=== PATIENT | male | born 1955 | race Caucasian/White ===

== ENCOUNTER 2021-10-08 05:51 | Emergency (ER) | payer OTHER, MEDICARE ==
[~2021-10-08] VITALS: Ht 177.8 cm; Wt 86.0 kg
[~2021-10-08 05:51] MED LIST: ASPI-1 PO; CITA-311 PO; GABA300C PO; METH-603 PO; METH5TAB PO; TIOT18CA3 INH
[2021-10-08 05:54] VITALS: BP 166/70
--- NOTE | 2021-10-08 12:16 | NUR ---
PT ELOPED FROM THE ER AT 0851. PT'S CALLED AT APPROX 0930 TO SEE IF THERE WERE ANY RESULTS FROM HIS CT SCAN. WAS INFORMED THAT THE CT HAD NOT BEEN READ BY THE ANESTHEOLOGIST AND TO CALL BACK IN APPROX 1 HR. PT'S NEVER CALLED BACK AND CT RESULTS WERE REVIEWED BY DR YOUNG. NOTED THAT PT HAD DISPLACED FRACTURES OF LT 3RD THROUGH 9TH RIBS AND REQUESTED THAT PT BE CALLED TO RETURN TO THE ER. PT'S WAS CALLED AND INFORMED OF THE CT RESULTS AND REQUESTED THAT SHE BRING HER BACK IN. STATES THAT THE PT WAS SLEEPING AND WAS HAVING NO NOTED DIFFICULTY BREATHING. STATES THAT THEY WOULD BE IN [place]. DR PORTILLO WAS NOTIFIED
[2021-10-08] MEDS ORDERED: HYDR-3972 PO (14:51)
== END 2021-10-08 08:53 | disposition left against medical advice (07) ==
LOC: ER 05:51
DX: R07.81 Pleurodynia (principal); Z53.21 Procedure and treatment not carried out due to patient leaving prior to being seen by health care provider
CPT/HCPCS: 71250

== ENCOUNTER 2021-10-08 12:44 | Emergency (ER) | payer OTHER, MEDICARE ==
[~2021-10-08] VITALS: Ht 177.8 cm; Wt 86.4 kg
[2021-10-08 13:53] VITALS: BP 148/87
[2021-10-08] MEDS ORDERED: morphine 4 MG/ML inj SYRINge IM ONE (14:45)
[2021-10-08] MEDS ORDERED: HYDROcodone/acetaminophen 10/325mg tab PO ONE (14:45)
[2021-10-08] MEDS ORDERED: HYDR-3972 PO (14:51)
== END 2021-10-08 15:20 | disposition home or self-care (01) ==
LOC: ER 12:44
DX: S22.42XA Multiple fractures of ribs, left side, initial encounter for closed fracture (principal); J44.9 Chronic obstructive pulmonary disease, unspecified; Z87.891 Personal history of nicotine dependence; Z79.82 Long term (current) use of aspirin; Z79.899 Other long term (current) drug therapy; W19.XXXA Unspecified fall, initial encounter; Y93.01 Activity, walking, marching and hiking; Y92.89 Other specified places as the place of occurrence of the external cause; Y99.8 Other external cause status
CPT/HCPCS: 96372; 99284; J2270

== ENCOUNTER 2024-08-10 12:09 | Emergency (ER) | payer OTHER, MEDICARE ==
[~2024-08-10] VITALS: Ht 177.8 cm; Wt 83.2 kg
[~2024-08-10 12:09] MED LIST changes: +HYDR-3972 PO
[2024-08-10 12:18] VITALS: BP 168/90; PULSE 60; TEMP 97.6; O2SAT 96
[2024-08-10 14:00] VITALS: RESP 16
[2024-08-10] MEDS: HYDROcodone/acetaminophen 10/325mg tab PO ONE (14:00)
== END 2024-08-10 15:19 | disposition home or self-care (01) ==
LOC: ER 12:10
DX: K40.90 Unilateral inguinal hernia, without obstruction or gangrene, not specified as recurrent (principal); J44.9 Chronic obstructive pulmonary disease, unspecified; Z72.89 Other problems related to lifestyle; Z79.899 Other long term (current) drug therapy; Z79.1 Long term (current) use of non-steroidal anti-inflammatories (NSAID); Z98.890 Other specified postprocedural states
CPT/HCPCS: 76705; 99284